=== PATIENT | female | born 1965 | race Caucasian/White ===

== ENCOUNTER → 2016-11-24 | Outpatient (CLI) | payer BC, OTHER ==
--- NOTE | 2016-11-24 09:46 | REP ---
Chest x-ray: Two views. History: Preoperative clearance. . Comparison study: November 17, 2012 . Findings: The lungs are well inflated and free of infiltrate. The pleural angles are sharp. The heart size is normal. Pulmonary vasculature is not increased. No significant bony abnormality is seen. Impression: Negative chest x-ray. Signed by Naveen Joseph MD 11/24/2016 09:37 A
== END ==
LOC: M LRY 09:09
PROVIDERS: ATTEND Family Medicine
DX: Z01.818 Encounter for other preprocedural examination (principal)

== ENCOUNTER → 2016-11-24 | Outpatient (REF) | payer OTHER ==
[2016-11-24 11:52] LABS: MEAN CORPUSCULAR HEMOGLOBIN 29.7 pg (27.0-33.0); MEAN CORPUSCULAR HGB CONC 33.3 g/dl (32.0-36.5); MEAN CORPUSCULAR VOLUME 89.3 fl (80.0-96.0); RED CELL DISTRIBUTION WIDTH 12.6 % (11.5-14.5); WHITE BLOOD COUNT 7.2 K/mm3 (4.0-10.0)
[2016-11-24 11:59] LABS: ANION GAP 7 MEQ/L (8-16); BLOOD UREA NITROGEN 12 MG/DL (7-18); CALCIUM LEVEL 9.3 MG/DL (8.5-10.1); CARBON DIOXIDE LEVEL 32 MEQ/L (21-32); CHLORIDE LEVEL 102 MEQ/L (98-107); CREATININE FOR GFR 0.63 MG/DL (0.55-1.02); GLOMERULAR FILTRATION RATE > 60.0 (>51); GLUCOSE, FASTING 107 MG/DL (70-105); POTASSIUM SERUM 4.2 MEQ/L (3.5-5.1); SODIUM LEVEL 141 MEQ/L (136-145)
== END ==
LOC: M SFHCLERA 09:06
PROVIDERS: ATTEND Family Medicine
DX: Z01.818 Encounter for other preprocedural examination (principal)

== ENCOUNTER → 2017-01-26 | Outpatient (REF) | payer OTHER | LOC: M SFHCWAGY 13:23 | PROVIDERS: ATTEND Nurse Practitioner Family | DX: Z12.4 Encounter for screening for malignant neoplasm of cervix (principal) ==

== ENCOUNTER → 2017-01-26 | Outpatient (CLI) | payer BC ==
--- NOTE | 2017-01-26 15:43 | REPMRS ---
Patient History The patient states she had a clinical breast exam in 01/14 Patient is postmenopausal. Family history of prostate cancer in maternal grandfather at age 50 or over. Taking estrogen for 13 years. Digital Woman Screen Mammo: January 26, 2017 - Exam #: [id number] Bilateral CC and MLO view(s) were taken. Technologist: Amy De La Cruz, Technologist Prior study comparison: November 11, 2015, digital woman screen mammo performed at [facility] [place]. October 30, 2014, digital woman screen mammo performed at [facility] to [place]. FINDINGS: The breast tissue is heterogeneously dense. This may lower the sensitivity of mammography. There has been no change in the appearance of the mammogram from the prior studies. There is a moderate amount of residual fibroglandular tissue which is fairly symmetric. There is no interval development of dominant mass, architectural distortion, or clustered microcalcification typical of malignancy. Scattered lymph nodes are seen in the axillae. No significant changes when compared with prior studies. ASSESSMENT: BI-RADS/ACR category 2 mammogram. Benign finding(s). Recommendation Routine screening mammogram in 1 year (for women over age 40). This mammogram was interpreted with the aid of an FDA-approved computer-aided dectection system. A. Negative x-ray reports should not delay biopsy if a dominant or clinically suspicious mass is present. B. Four to eight percent of cancers are not identified by mammography. C. Adenosis and dense breast may obscure an underlying neoplasm. Electronically Signed By: Jeffrey Puri MD 01/26/17 [id number]
== END ==
LOC: M WHC 13:14
PROVIDERS: ATTEND Nurse Practitioner Family
DX: Z12.31 Encounter for screening mammogram for malignant neoplasm of breast (principal)

== ENCOUNTER → 2017-02-07 | Outpatient (REF) | payer OTHER ==
[2017-02-07 17:32] LABS: ESTRADIOL 25.2 PG/ML
== END ==
LOC: M LABDRAW1 15:42
PROVIDERS: ATTEND Nurse Practitioner Family
DX: E89.41 Symptomatic postprocedural ovarian failure (principal)

== ENCOUNTER 2017-11-07 11:16 | Day surgery (SDC) | payer BC, OTHER ==
[2017-11-07] MEDS ORDERED: NS 1,000 ML IV (11:30)
[2017-11-07] MEDS ORDERED: PROPOFOL 500 MG/50 ML VIAL As Ordered (11:33)
[2017-11-07] MEDS ORDERED: fentaNYL 100 MCG/2 ML INJECTION (J3010) As Ordered (12:08)
== END 2017-11-07 13:12 | disposition home or self-care (01) ==
LOC: M OPP 11:16
DX: Z12.11 Encounter for screening for malignant neoplasm of colon (principal); Q23.1 Congenital insufficiency of aortic valve; R12 Heartburn; M15.9 Polyosteoarthritis, unspecified; E78.00 Pure hypercholesterolemia, unspecified; R06.83 Snoring; Z91.89 Other specified personal risk factors, not elsewhere classified; Z79.899 Other long term (current) drug therapy; Z80.1 Family history of malignant neoplasm of trachea, bronchus and lung
CPT/HCPCS: 45378

== ENCOUNTER → 2018-02-15 | Outpatient (CLI) | payer BC, OTHER ==
[2018-02-15 11:02] LABS: HEMATOCRIT 40.9 % (36.0-47.0); HEMOGLOBIN 13.5 g/dl (12.0-15.5); MEAN CORPUSCULAR HEMOGLOBIN 29.2 pg (27.0-33.0); MEAN CORPUSCULAR VOLUME 88.3 fl (80.0-96.0); PLATELET COUNT, AUTOMATED 221 10^3/uL (150-450); RED BLOOD COUNT 4.63 10^6/uL (4.00-5.40); RED CELL DISTRIBUTION WIDTH 13.2 % (11.5-14.5); WHITE BLOOD COUNT 7.1 10^3/uL (4.0-10.0)
[2018-02-15 11:32] LABS: ALBUMIN 3.8 GM/DL (3.2-5.2); ALBUMIN/GLOBULIN RATIO 0.97 (1.00-1.93); ALKALINE PHOSPHATASE 116 U/L (45-117); ALT/SGPT 37 U/L (12-78); ANION GAP 4 MEQ/L (8-16); AST/SGOT 29 U/L (7-37); BILIRUBIN,TOTAL 0.3 MG/DL (0.2-1.0); BLOOD UREA NITROGEN 16 MG/DL (7-18); CALCIUM LEVEL 9.3 MG/DL (8.5-10.1); CARBON DIOXIDE LEVEL 32 MEQ/L (21-32); CHLORIDE LEVEL 104 MEQ/L (98-107); CHOLESTEROL LEVEL 256 MG/DL (<200); CREATININE FOR GFR 0.52 MG/DL (0.55-1.30); GLOMERULAR FILTRATION RATE > 60.0 (>51); GLUCOSE, FASTING 98 MG/DL (70-100); HDL CHOLESTEROL 80 MG/DL (>40); LDL CHOLESTEROL 148.8 MG/DL (<100); MAGNESIUM LEVEL 2.3 MG/DL (1.8-2.4); NON-HDL-C 176 MG/DL; POTASSIUM SERUM 4.7 MEQ/L (3.5-5.1); SODIUM LEVEL 140 MEQ/L (136-145); TOTAL PROTEIN 7.7 GM/DL (6.4-8.2); TRIGLYCERIDES LEVEL 136 MG/DL (<150)
[2018-02-15 15:04] LABS: ESTIMATED AVERAGE GLUCOSE 137 MG/DL (60-110); HEMOGLOBIN A1c 6.4 %
[2018-02-17 09:45] LABS: TOTAL 25(OH) VITAMIN D 44.8 NG/ML (30.0-100.0)
== END ==
LOC: M LAB 10:11
DX: E78.5 Hyperlipidemia, unspecified (principal); R73.09 Other abnormal glucose; E55.9 Vitamin D deficiency, unspecified
CPT/HCPCS: 83735

== ENCOUNTER → 2018-04-04 | Outpatient (CLI) | payer BC | LOC: M WHC 13:53 | DX: Z12.31 Encounter for screening mammogram for malignant neoplasm of breast (principal); Z78.0 Asymptomatic menopausal state | CPT/HCPCS: 77067 ==

== ENCOUNTER → 2018-04-25 | Outpatient (CLI) | payer BC, OTHER | LOC: M SLEEP HO 12:58 | DX: R40.0 Somnolence (principal) | CPT/HCPCS: G0399 ==

== ENCOUNTER → 2018-06-19 | Outpatient (CLI) | payer BC, OTHER | LOC: M SLEEP 19:34 | DX: G47.33 Obstructive sleep apnea (adult) (pediatric) (principal) | CPT/HCPCS: 95811 ==